=== PATIENT | female | born 1995 | race Caucasian/White ===

== ENCOUNTER → 2018-06-04 15:20 | Observation (INO) ==
[2018-06-04 14:44] LABS: Basophils % 0.2 %; Eosinophils # 0.1 K/mcL (0.0-0.6); Eosinophils % 0.7 %; Hematocrit 34.1 % (35.3-44.9); Hemoglobin 11.3 g/dL (11.5-15.4); Immature Granulocytes % 0.4 % (0-4); Lymphocytes # 1.7 K/mcL (0.6-4.6); Lymphocytes % 19.9 %; Mean Corpuscular HGB Conc 33.1 g/dL (31.6-35.5); Mean Corpuscular Hemoglobin 28.8 pg (28.0-33.3); Mean Platelet Volume 11.4 fL (9.4-12.4); Monocytes # 0.4 K/mcL (0.0-1.3); Monocytes % 5.1 %; Neutrophils # 6.2 K/mcL (1.6-8.9); Platelet Count 208 K/mcL (140-400); Red Blood Count 3.92 M/mcL (3.82-4.97); Red Cell Distribution Width 13.1 % (11.5-14.5); Segmented Neutrophils % 73.7 %
[2018-06-04 14:47] LABS: Amphetamine Screen,Urine Negative ng/mL (Cutoff=1000); Barbiturate Screen,Urine Negative ng/mL (Cutoff=200); Benzodiazepines Screen,Urine Negative ng/mL (Cutoff=200); Cannabinoid Screen,Urine Negative ng/mL (Cutoff = 50); Cocaine Screen,Urine Negative ng/mL (Cutoff= 300); Opiate Screen,Urine Negative ng/mL (Cutoff=300); Phencyclidine Screen,Urine Negative ng/mL (Cutoff=25); Protein/Creatinine Ratio,Urine 0.19 mg/mg (0.00-0.20)
[2018-06-04 14:57] LABS: Alanine Aminotransferase 15 Units/L (7-52); Aspartate Amino Transferase 20 Units/L (13-39); BUN/Creatinine Ratio 13 (6-26); Blood Urea Nitrogen 7 mg/dL (6-20); Lactate Dehydrogenase 179 Units/L (140-271); eGFR For Non-African Americans > 60 (> 60)
--- NOTE | 2018-06-04 15:14 | Discharge Summary ---
Date of Encounter: 06/04/18 Time of Encounter: 15:14 - Discharge Diagnosis (1) 36 weeks gestation of Priority: Primary Status: Acute Comments: Admitted to observation for headache PIH evaluation all WNL, BP normotensive, no s/s of preeclampsia (2) NST (non-stress test) reactive Priority: Secondary Status: Acute Comments: FHR 130 bpm, moderate variability, 15X15 accels, no decels. (3) Headache in Priority: Secondary Status: Acute Comments: Patient complains of frequent headaches. Has a history of migraine headaches. She states she has not taken any Tylenol for several days. Currently rating pain at 1 of 10 scale. Offered patient Fioricet and she is agreeable to try that. Prescription was sent to her pharmacy. She is to follow up for her routine appointment as scheduled. Qualifiers: Trimester: third trimester Qualified Code(s): O26.893 - Other specified related conditions, third trimester; R51 - Headache - Discharge Medications Prescriptions: New Acetaminophen/Butalbital/Caffe [Fioricet] 1 each PO Q6HR #20 tablet Continue Pnv51/Iron Fum/FA/Om-3/Dha/Epa [ Multi + Dha Softgel] 1 each PO DAILY Fexofenadine/Pseudoephedrine [Leela-D 24 Hour Tablet] 1 each PO DAILY Home Medications: Acetaminophen/Butalbital/Caffe [Fioricet] 1 each PO Q6HR #20 tablet 06/04/18 [Rx] Fexofenadine/Pseudoephedrine [Leela-D 24 Hour Tablet] 1 each PO DAILY 06/04/18 [History] Pnv51/Iron Fum/FA/Om-3/Dha/Epa [ Multi + Dha Softgel] 1 each PO DAILY 06/04/18 [History] Allergies/Adverse Reactions: Allergy/AdvReac Type Severity Reaction Status Date / Time No Known Allergies Allergy Verified 06/04/18 14:09 Data Procedures and tests throughout hospitalization: Laboratory Tests 06/04/18 06/04/18 06/04/18 14:15 14:15 14:15 WBC 8.5 RBC 3.92 Hgb 11.3 L Hct 34.1 L MCV 87.0 MCH 28.8 MCHC 33.1 RDW 13.1 Plt Count 208 MPV 11.4 Immature Gran % 0.4 Seg Neutrophils % 73.7 Lymphocytes % 19.9 Monocytes % 5.1 Eosinophils % 0.7 Basophils % 0.2 Neutrophils # 6.2 Lymphocytes # 1.7 Monocytes # 0.4 Eosinophils # 0.1 Basophils # 0.0 BUN 7 Creatinine 0.54 L Est GFR ( Amer) > 60 Est GFR (Non-Af Amer) > 60 BUN/Creatinine Ratio 13 Uric Acid 4.0 AST 20 ALT 15 Lactate Dehydrogenase 179 Urine Creatinine Protein/Creatinin Ratio Urine Total Protein Urine Opiates Screen Negative Ur Barbiturates Screen Negative Ur Phencyclidine Scrn Negative Ur Amphetamines Screen Negative U Benzodiazepines Scrn Negative Urine Cocaine Screen Negative U Marijuana (THC) Screen Negative Ur Drug Screen Interp See Below 06/04/18 14:15 WBC RBC Hgb Hct MCV MCH MCHC RDW Plt Count MPV Immature Gran % Seg Neutrophils % Lymphocytes % Monocytes % Eosinophils % Basophils % Neutrophils # Lymphocytes # Monocytes # Eosinophils # Basophils # BUN Creatinine Est GFR ( Amer) Est GFR (Non-Af Amer) BUN/Creatinine Ratio Uric Acid AST ALT Lactate Dehydrogenase Urine Creatinine 27 Protein/Creatinin Ratio 0.19 Urine Total Protein 5 Urine Opiates Screen Ur Barbiturates Screen Ur Phencyclidine Scrn Ur Amphetamines Screen U Benzodiazepines Scrn Urine Cocaine Screen U Marijuana (THC) Screen Ur Drug Screen Interp Labs on day of discharge: Labs from last 24 hours 06/04/18 06/04/18 06/04/18 14:15 14:15 14:15 WBC 8.5 RBC 3.92 Hgb 11.3 L Hct 34.1 L MCV 87.0 MCH 28.8 MCHC 33.1 RDW 13.1 Plt Count 208 MPV 11.4 Immature Gran % 0.4 Seg Neutrophils % 73.7 Lymphocytes % 19.9 Monocytes % 5.1 Eosinophils % 0.7 Basophils % 0.2 Neutrophils # 6.2 Lymphocytes # 1.7 Monocytes # 0.4 Eosinophils # 0.1 Basophils # 0.0 BUN 7 Creatinine 0.54 L Est GFR ( Amer) > 60 Est GFR (Non-Af Amer) > 60 BUN/Creatinine Ratio 13 Uric Acid 4.0 AST 20 ALT 15 Lactate Dehydrogenase 179 Urine Creatinine 27 Protein/Creatinin Ratio 0.19 Urine Total Protein 5 Urine Opiates Screen Ur Barbiturates Screen Ur Phencyclidine Scrn Ur Amphetamines Screen U Benzodiazepines Scrn Urine Cocaine Screen U Marijuana (THC) Screen Ur Drug Screen Interp 06/04/18 14:15 WBC RBC Hgb Hct MCV MCH MCHC RDW Plt Count MPV Immature Gran % Seg Neutrophils % Lymphocytes % Monocytes % Eosinophils % Basophils % Neutrophils # Lymphocytes # Monocytes # Eosinophils # Basophils # BUN Creatinine Est GFR ( Amer) Est GFR (Non-Af Amer) BUN/Creatinine Ratio Uric Acid AST ALT Lactate Dehydrogenase Urine Creatinine Protein/Creatinin Ratio Urine Total Protein Urine Opiates Screen Negative Ur Barbiturates Screen Negative Ur Phencyclidine Scrn Negative Ur Amphetamines Screen Negative U Benzodiazepines Scrn Negative Urine Cocaine Screen Negative U Marijuana (THC) Screen Negative Ur Drug Screen Interp See Below Date of admission: 06/04/18 13:35 Primary care physician: PCP NONE Discharging clinician: Chani Monahan Anticipated date of discharge: 06/04/18 - Patient Status Disposition: Home, Self-Care Condition: Good Functional capacity at discharge: independent ambulation Overall status at discharge: patient is progressing back to baseline - Discharge Instructions Follow Up With: NONE,PCP [Primary Care Provider] - Additional Instructions: LABOR AND DELIVERY DISCHARGE INSTRUCTIONS Signs and Symptoms to be Reported to your Doctor Immediately: * Sudden gush, continuous or intermittent lead of fluid from vagina (note the time of gush and color of fluid) * Onset of bright red vaginal bleeding with or without pain (if you had a vaginal exam during this visit you may notice some dark red spotting. This is normal.) * Lower abdominal cramping or backache that is premenstrual-like feeling. * More than 6 contractions in one hour. * Burning during urination, having to urinate more frequently or pain in your mid-back. * A change in the baby's activity. This could be an increase or decrease in activity. * Severe headache which does not go away with tylenol. * Sudden swelling in the face, hands, arms and/or legs. * Upper abdominal pain - sometimes associated with heartburn or nausea and is not relieved by Maalox, Mylanta or Tums. * Dizziness or blurred vision or visual disturbances (seeing stars/lights). * Kick Counts One hour after a meal, lay down on one side in a quiet place. Count the number of pau the baby moves during an hour. If less than 6 movements, notify your physician. Diet: *Force fluids - 8-10 tall glasses of fluid per day. May include popsicles and jello. *Limit caffeine - this includes chocolate, coffee, tea, any soft drink containing such as all michael, Scooby Yellow and Mountain Dew - Diet and Activity Activity: resume usual activities as tolerated Diet: regular diet Hospital Course [employer] Time Attestation: Total time spent providing and/or coordinating discharge services: Time Spent: Less than 30 minutes Exam - Constitutional General appearance IM: A&O X 3, pleasant, no acute distress, answers questions appropriately - Respiratory Respiratory exam: Present: CTAB - Cardiovascular Cardiovascular exam IM: Present: RRR, +S1, +S2 - GI/Abdominal GI/Abdominal exam IM: normal bowel sounds, soft - Rectal Rectal exam: deferred - External exam: normal external exam - Extremities Exam Extremities exam IM: Present: full ROM, normal capillary refill, normal inspection - Neurological Exam Neurological exam: alert, normal gait, oriented X3 - VTE Reasons for not Prescribing Prophylaxis: Treatment not Indicated - Low risk for VTE
== END | disposition home or self-care (01) ==
LOC: 1NENULAB
PROVIDERS: ADMIT Registered Nurse; ATTEND Registered Nurse